=== PATIENT | male | born 1965 | race Caucasian/White ===

== ENCOUNTER 2024-08-21 08:19 | Emergency (ER) | payer OTHER, SELFPAY ==
[2024-08-21 08:24] VITALS: BP 173/105; PULSE 74; RESP 14; O2SAT 100
--- NOTE | 2024-08-21 08:30 | DI.RAD_ITS ---
Exam(s) XR ANKLE RT COMPLETE EXAM: XR ANKLE RT COMPLETE CLINICAL HISTORY: Fall, swelling. TECHNIQUE: 2D digital imaging was performed. COMPARISON: No exams were available for comparison FINDINGS: 3 views On the lateral view there is a subtle suggestion of a possible nondisplaced posterior malleolus fract ure. There are no fractures of the lateral malleolus. Small ossific densities seen adjacent to the outer aspect of the medial malleolus which is probably an accessory ossicle. There is a subarticular linear lucency in the lateral aspect of the talar dome, possibly significant. No evidence of osseous tarsal coalition. Bone density normal. No significant osseous lesions. IMPRESSION: Possible subtle posterior malleolus fracture, nondisplaced. Finding in the lateral aspect of the talar dome as described above. Further imaging recommended. DATA REPOSITORY: RADIATION DOSE DELIVERED:
--- NOTE | 2024-08-21 08:30 | DI.RAD_ITS ---
Exam(s) XR TIB/FIB RT EXAM: XR TIB/FIB RT CLINICAL HISTORY: Leg pain, fall. TECHNIQUE: 2D digital imaging was performed. COMPARISON: No exams were available for comparison FINDINGS: Two views: There is a nondisplaced fracture of the neck of the upper fibula. No fractures in the proximal tibia . However, distally there is a subtle suggestion of a posterior malleolus fracture. Osseous lesions. No radiopaque foreign bodies. IMPRESSION: Proximal fibular fracture. Possible distal tibial fracture of the posterior malleolus. DATA REPOSITORY: RADIATION DOSE DELIVERED:
--- NOTE | 2024-08-21 08:43 | ED.GENADUL_ITS ---
Discharge Plan Disposition Patient Disposition: Home Condition: Stable Discharge Details Clinical Impression: Closed Maisonneuve fracture of right lower extremity Primary Care Provider: Unknown,Unknown ED Provider: Promise Parra Home Meds and New Rx's Prescriptions: Continued metformin 850 mg tablet 850 mg PO BID Patient Comments: Pt states he is only taking 1 daily because the medication upsets his stomach 08/21/24 Discharge Instructions Instructions: How to Use Crutches, Lower Leg Fracture ED Additional Instructions: At this time the need for surgery will be determined at the follow-up appointment with orthopedics. They are able to see you within the week. If you choose to however follow-up in [place] please take the disc with you. If you are flying on a plane please take a baby chewable aspirin 81 mg twice daily. This is recommended by the orthopedic surgeon. Nonweightbearing. Please elevate your leg above the level of your heart when laying or sitting down. Apply ice every 20 minutes for the first 2 to 3 days to decrease pain and swelling. Please take Tylenol or Ibuprofen with food every 4-6 hours as needed for pain and swelling. Stand Alone Forms: Work Release Referrals: Chente Mondragon MD [ [facility] STAFF PHYSICIAN] - 1 week (Maisonneuve Fracture RLE) Discharge Data Discharge Date/Time-TO BE ENTERED AT DEPARTURE: 08/21/24 10:58 HPI General Mode of arrival: ambulatory . Date/Time Provider Initiated Documentation: 08/21/24 08:22 . Limitations to Documentation: no limitations . Information obtained by: patient, RN notes reviewed and old records reviewed . HPI Narrative: 59-year-old male presents to the ER with chief complaint of right ankle pain and swelling after a hyperextension type injury which occurred last night. Patient reports that he was putting something into his truck and slipped and his leg went back behind him. He has been ambulatory on it since and has been icing it at home took for 100 mg ibuprofen prior to arrival. No obvious deformity distal CMS is intact. Does have a mild swelling to his lateral malleolus. He also reports some tenderness that radiates up the lateral part of his calf. Patient here at the request of his place of work. Related Data Home Medications ?Medication ?Instructions ?Recorded ?Confirmed metformin 850 mg tablet 850 mg PO BID 08/21/24 08/21/24 Allergies Allergy/AdvReac Type Severity Reaction Status Date / Time Penicillins Allergy Intermediate Hives Verified 08/21/24 08:29 General Stated Complaint: Orthopedic PASHA: 4 Review of Systems All systems reviewed & are unremarkable except as noted in HPI and below Musculoskeletal Musculoskeletal: Reports as per HPI, Reports arthralgias and Reports joint swelling Exam Const General: cooperative, healthy appearing, comfortable, well developed and well groomed Nutritional Appearance: average body habitus Orientation: alert, awake and oriented x3 Resp Effort & Inspection: normal respiratory effort and able to speak in complete sentences Auscultation: clear to auscultation bilaterally Extrem General: normal to inspection Right lower extremity: lower leg Details: tenderness Location: other (Lateral calf) and ankle Details: tenderness, swelling, no edema and normal ROM; no crepitus Course Vital Signs Vital signs: Vital Signs Pulse 74 08/21/24 08:24 Respiratory Rate 14 08/21/24 08:24 Blood Pressure 173/105 H 08/21/24 08:24 Pulse Oximetry 100 08/21/24 08:24 Pulse 74 08/21/24 08:24 Respiratory Rate 14 08/21/24 08:24 Respiratory Effort Normal, Non-Labored 08/21/24 08:30 Blood Pressure 173/105 H 08/21/24 08:24 Blood Pressure Position Sitting 08/21/24 08:24 Pulse Oximetry 100 08/21/24 08:24 Oxygen Delivery Method Room Air 08/21/24 08:24 Oxygen Flow Rate 0 08/21/24 08:24 Pain Level 3 08/21/24 08:39 Medical Decision Making 59-year-old male presents to the ER with chief complaint of right ankle pain and swelling after a hyperextension type injury which occurred last night. Patient reports that he was putting something into his truck and slipped and his leg went back behind him. He has been ambulatory on it since and has been icing it at home took for 100 mg ibuprofen prior to arrival. No obvious deformity distal CMS is intact. Does have a mild swelling to his lateral malleolus. He also reports some tenderness that radiates up the lateral part of his calf. Patient here at the request of his place of work. X-ray right ankle and right tib-fib ordered. I do suspect sprain. I did discuss home care with patient he verbalized understanding. X-rays show a posterior malleolus fracture and a proximal fibula fracture. Spoke with Dr. Mondragon who is on-call for orthopedic surgeon he was able to review the images he recommends screening labs for possible surgery. Most likely a tall cam boot and crutches with nonweightbearing status. Patient is here out of town from [place] on a work assignment, he may want to have surgery if needed here before going back to [place]. Will go ahead and draw the screening labs. Discussed x-ray results with patient who verbalized understanding. Hemoglobin A1c 7.8 glucose 139. I did relay the lab results to orthopedic surgeon Dr. Mondragon. He reports that at this time as long as the fractures remain nondisplaced there is no need for surgery. We will get patient a disc for follow-up. Determination for need for surgery will be at the 1 week follow-up. Patient placed in a tall walking boot crutches nonweightbearing status. Instructed on RICE procedures, home care and follow-up. Dr. Mondragon also recommends 81 mg aspirin twice daily if traveling on a plane. Patient takes 325 mg aspirin daily I did encourage him to continue this. He is going to be flying back to [place]. I disc was given to him and copy of his labs. Discussed follow-up care, strict return instructions and nonweightbearing status. This text was generated using Deeplink dictation system, please disregard any oddities of phrase or misspellings. Imaging Data Radiologic Study: Imaging: X-Ray Radiologist's impression: COMPARISON: No exams were available for comparison FINDINGS: 3 views On the lateral view there is a subtle suggestion of a possible nondisplaced posterior malleolus fracture. There are no fractures of the lateral malleolus. Small ossific densities seen adjacent to the outer aspect of the medial malleolus which is probably an accessory ossicle. There is a subarticular linear lucency in the lateral aspect of the talar dome, possibly significant. No evidence of osseous tarsal coalition. Bone density normal. No significant osseous lesions. IMPRESSION: Possible subtle posterior malleolus fracture, nondisplaced. Finding in the lateral aspect of the talar dome as described above. Further imaging recommended. Radiologic Study #2: Imaging: X-Ray Radiologist's impression: CLINICAL HISTORY: Leg pain, fall. TECHNIQUE: 2D digital imaging was performed. COMPARISON: No exams were available for comparison FINDINGS: Two views: There is a nondisplaced fracture of the neck of the upper fibula. No fractures in the proximal tibia. However, distally there is a subtle suggestion of a posterior malleolus fracture. Osseous lesions. No radiopaque foreign bodies. IMPRESSION: Proximal fibular fracture. Possible distal tibial fracture of the posterior malleolus. Lab Data Lab results reviewed: Yes I reviewed the patient's lab results. Labs: Laboratory Tests Range/Units 08/21/24 09:50 WBC (4.4-10.8) 10^3/uL 8.84 RBC (4.36-5.78) 10^6/uL 5.04 Hgb (13.5-17.5) g/dL 16.0 Hct (40.0-50.0) % 46.4 MCV (80-95) fL 92 MCH (27.0-33.0) pg 31.7 MCHC (32.0-36.0) % 34.5 RDW (11.8-14.1) % 13.2 Plt Count (130-400) 10^3/uL 271 MPV (8.0-11.0) fL 9.2 Immature Gran % % 0.3 Neutrophils % % 70.0 Lymphocytes % % 20.2 Monocytes % % 7.8 Eosinophils % % 0.9 Basophils % % 0.8 Nucleated RBC % (0.0-0.3) % 0.0 Absolute Neutrophils (1.2-6.7) 10^3/uL 6.18 Absolute Lymphocytes (1.2-3.4) 10^3/uL 1.79 Absolute Monocytes (0.1-0.8) 10^3/uL 0.69 Absolute Eosinophils (0.0-0.7) 10^3/uL 0.08 Absolute Basophils (0.0-0.2) 10^3/uL 0.07 Sodium (136-145) mmol/L 141 Potassium (3.5-5.1) mmol/L 4.2 Chloride (98-107) mmol/L 105 Carbon Dioxide (21.0-32.0) mmol/L 27.0 Anion Gap (3-11) mmol/L 9.0 BUN (7-18) mg/dL 12 Creatinine (0.70-1.30) mg/dL 1.2 Est GFR (CKD-EPI 2020) (mL/min/1.73m2) 69.66 Glucose (74-106) mg/dL 139 H Hemoglobin A1c (<5.7) % 7.8 H Calcium (8.5-10.1) mg/dL 9.1 Total Bilirubin (0.2-1.0) mg/dL 0.57 AST (15-37) U/L 17 ALT (16-63) U/L 29 Alkaline Phosphatase (46-116) U/L 64 Total Protein (6.4-8.2) g/dL 7.7 Albumin (3.4-5.0) g/dL 3.9 Quality:SDOH Health Related Social Needs: No Data to Display PFSH All Active Problems (Updated 08/21/24 @ 10:23 by Promise Parra NP) Closed Maisonneuve fracture of right lower extremity (Acute) Social History Smoking/Tobacco Use Status: Current every day Tobacco Type: e-cigarettes Smoking risk assessment performed?: Yes Alcohol Intake: current Alcohol Intake frequency: holidays/special occasions only Drug use: Never Substance use type: does not use Do you feel safe at home: Yes Do you feel safe in your relationship?: Yes
[2024-08-21 09:10] VITALS: BP 171/99; O2SAT 97
[2024-08-21 09:55] LABS: Abs Immature Grans 0.03 10^3/uL (0.0-0.06); Absolute Basophil Count 0.07 10^3/uL (0.0-0.2); Absolute Eosinophil Count 0.08 10^3/uL (0.0-0.7); Absolute Lymphocyte Count 1.79 10^3/uL (1.2-3.4); Absolute Monocyte Count 0.69 10^3/uL (0.1-0.8); Absolute Neutrophil Count 6.18 10^3/uL (1.2-6.7); Basophils % 0.8 %; Eosinophils % 0.9 %; HCT 46.4 % (40.0-50.0); Immature Grans % 0.3 %; Lymphocytes % 20.2 %; MCH 31.7 pg (27.0-33.0); MCHC 34.5 % (32.0-36.0); MCV 92 fL (80-95); MPV 9.2 fL (8.0-11.0); Monocytes % 7.8 %; Platelet Count 271 10^3/uL (130-400); RBC 5.04 10^6/uL (4.36-5.78); RDW 13.2 % (11.8-14.1); RDW-SD 45.1 fL; WBC 8.84 10^3/uL (4.4-10.8)
[2024-08-21 10:08] LABS: Hemoglobin A1C 7.8 % (<5.7)
[2024-08-21 10:13] LABS: ALT 29 U/L (16-63); AST 17 U/L (15-37); Albumin 3.9 g/dL (3.4-5.0); Alkaline Phosphatase 64 U/L (46-116); BUN 12 mg/dL (7-18); Bilirubin, Total 0.57 mg/dL (0.2-1.0); CREATININE 1.2 mg/dL (0.70-1.30); Calcium 9.1 mg/dL (8.5-10.1); Chloride 105 mmol/L (98-107); Estimated GFR 69.66 (mL/min/1.73m2); Glucose 139 mg/dL (74-106); Potassium 4.2 mmol/L (3.5-5.1); Sodium 141 mmol/L (136-145); Total Protein 7.7 g/dL (6.4-8.2)
[2024-08-21 10:58] VITALS: BP 182/106; PULSE 67; RESP 16; TEMP 36.9; O2SAT 96
== END 2024-08-21 10:58 | disposition home or self-care (01) ==
PROVIDERS: Emergency Provider Registered Nurse Emergency
DX: S82.864A Nondisplaced Maisonneuve's fracture of right leg, initial encounter for closed fracture (principal); E11.9 Type 2 diabetes mellitus without complications; Z79.84 Long term (current) use of oral hypoglycemic drugs; W00.0XXA Fall on same level due to ice and snow, initial encounter; Y93.89 Activity, other specified; Y92.89 Other specified places as the place of occurrence of the external cause
CPT/HCPCS: 36415; 80053; 99284; 73590; 73610; 83036; 85025; 99285